=== PATIENT | male | born 1990 | race Caucasian/White ===

== ENCOUNTER 2022-08-17 09:53 | Emergency (ER) | payer MEDICAID, SELFPAY ==
[2022-08-17] VITALS (8 sets, daily range): BP systolic 0–163; BP diastolic 0–103; PULSE 0–95; RESP 0–20; TEMP -17.7–36.8; O2SAT 0–98; BMI 31.5
--- NOTE | 2022-08-17 09:53 | ECG_ITS ---
APPROVED REPORT Exam: Resting ECG HR:89 bpm ECG Measurements Heart Rate 89 AXES NH 156 P 56 QRSd 139 QRS 27 QT 363 T 33 QTc 409 Conclusion SINUS RHYTHM WITH SINUS ARRHYTHMIA RIGHT BUNDLE BRANCH BLOCK [120+ ms QRS DURATION, UPRIGHT V1, 40+ ms S IN I/aVL/V4/V5/V6] ABNORMAL ECG UNCONFIRMED REPORT Electronically signed by : Ross Morin MD 08/17/2022 17:02:52
--- NOTE | 2022-08-17 10:03 | XR_ITS ---
FINAL REPORT CLINICAL HISTORY: epigastric pain FINDINGS: Two views of the chest were obtained. The heart size and pulmonary vascularity are within normal limits. The mediastinum is normal. No acute pulmonary abnormality is identified. There is no pneumothorax. The bony thorax is intact. IMPRESSION: No active cardiopulmonary disease. Reviewed, Interpreted and Dictated by Maurizio Pelletier III, MD Transcribed by Leisa Moctezuma Authenticated and . [facility]
[2022-08-17 10:13] LABS: Basophils # 0.1 K/mm3 (0-0.2); Basophils % 1.1 % (0.1-2.0); Eosinophils # 0.4 K/mm3 (0.0-0.4); Eosinophils % 3.4 % (0.1-12.0); Hematocrit 52.2 % (42.0-52.0); Lymphocytes # 1.5 K/mm3 (0.7-4.5); Lymphocytes % 14.6 % (10-50); Mean Corpuscular HGB Conc 32.6 g/dL (31.8-35.4); Mean Corpuscular Hemoglobin 30.8 pg (27.0-31.2); Mean Corpuscular Volume 94.3 fl (80-94); Mean Platelet Volume 8.3 fl (7.4-10.4); Monocytes # 0.4 K/mm3 (0.1-1.0); Monocytes % 4.3 % (1.7-9.3); Neutrophils # 7.8 K/mm3 (1.8-7.8); Neutrophils % 76.5 % (37.0-80.0); Platelet Count 201 K/mm3 (142-424); Red Blood Count 5.54 M/mm3 (4.60-6.20); Red Cell Distribution Width 12.8 % (11.5-17.5); White Blood Count 10.2 K/mm3 (4.8-10.8)
[2022-08-17 10:14] LABS: Chloride 102 mmol/L (98-107); Potassium 3.8 mmoL/L (3.5-5.1); Sodium 143 mmol/L (136-145)
[2022-08-17 10:16] LABS: Alanine Aminotransferase 597 U/L (12-78); Aspartate Amino Transferase 412 U/L (17-59); Blood Urea Nitrogen 12 mg/dl (9-20); Creatinine Clearance Estimated 189 mL/min (50-200); Estimated Glomerular Filt Rate 86 ml/min (>60); GFR (African American) 104 ML/MIN (>60)
[2022-08-17 10:17] LABS: Albumin Level 4.8 g/dl (3.5-5.0); Albumin/Globulin Ratio 1.5 (1.1-1.8); Alkaline Phosphatase 74 U/L (38-126); Anion Gap 11.8 mEq/L (5-15); Bilirubin,Total 3.7 mg/dl (0.2-1.3); Calcium 9.2 mg/dl (8.4-10.2); Carbon Dioxide 33 mmol/L (22.0-30.0); Globulin 3.1 g/dL (1.3-3.2); Glucose 145 mg/dl (74-100); Total Protein,Serum 7.9 g/dl (6.3-8.2)
--- NOTE | 2022-08-17 10:19 | HMH.EDGENADL ---
Discharge Plan Disposition Patient Disposition: Left Against Medical Advice Prescriptions Prescriptions: No Action No Known Home Medications Referrals Follow up/Referrals: Provider,Referral, MD [Primary Care Provider] - See instructions Clinical Impressions Clinical Impression: Left against medical advice, Acute gallstone pancreatitis, Choledocholithiasis Discharge ED Provider: Marco Antonio Sandoval General Adult HPI General Chief complaint: PAIN Stated complaint: epigastric pain Time Seen by Provider: 08/17/22 10:03 Mode of Arrival: Ambulatory Source of Information: Patient Limitations: No Limitations Description of Symptoms (Recalled from ER Triage Doc. by RN): pt to ed c/o epigastric pain that radiates to the umbilical region and chest. pt describes this pain as a burning pain. pt states this pain started yesterday afternoon after eating mcdonals. pt denies pmhx. History of Present Illness HPI narrative: This is an otherwise healthy 32-year-old male presenting with abdominal pain. Patient states that abdominal pain started approximately 24 hours to arrival after eating 2 cheeseburgers. Radiates downward toward his pelvis, associated with nausea without vomiting. Patient denies fevers, chills, constipation, but has had diarrhea that is nonbloody. Lying on his side in the position makes it better, nothing in particular makes it worse other than eating. No other relevant history. Related Data Home Medications Medication Instructions Recorded Confirmed No Known Home Medications 08/17/22 08/17/22 Allergies Allergy/AdvReac Type Severity Reaction Status Date / Time No Known Allergies Allergy Verified 08/17/22 10:02 [facility] Disclaimer: The information contained in this section may have been updated after the patient was seen, as this information can be updated by other users. Social History Smoking Status: Current every day smoker alcohol intake: current current occupational status: employed Travel in the last 8 weeks: None ROS Obtained: Yes All systems reviewed & no additional complaints except as documented Physical Exam General General appearance: alert and in no apparent distress Head Head exam: atraumatic, normocephalic and normal inspection Eye Eye exam: Present normal appearance, PERRL and EOMI ENT ENT exam: Present normal exam, normal oropharynx, mucous membranes moist, TM's normal bilaterally and normal external ear exam Neck Neck exam: Present normal inspection, full ROM and trachea midline; Absent meningismus or lymphadenopathy Chest Chest inspection: Present normal inspection and symmetric chest wall rise; Absent tenderness Respiratory Respiratory exam: Present normal lung sounds bilaterally; Absent respiratory distress Cardiovascular Cardiovascular exam: Present regular rate and normal rhythm; Absent JVD Abdominal Exam Abdominal exam: Present soft, tenderness, normal bowel sounds and Crespo's sign; Absent distention, guarding, rebound, rigidity, Rovsing's sign or tenderness at McBurney's Point Abdominal tenderness: Present RUQ and epigastrium Extremities Exam Extremities exam: Present normal inspection, full ROM and normal capillary refill; Absent calf tenderness Back Exam Back exam: Present normal inspection; Absent tenderness Neurological Exam Neurological exam: Present alert and oriented X3 Psychiatric Psychiatric exam: Present normal affect and normal mood Skin Skin exam: Present warm, dry, intact and normal color Lymphatic Lymphatic Findings: no adenopathy Medical Decision Making Medical Records Medical records reviewed: Yes I reviewed the patient's medical records. Adrian Inquiry Pt receiving controlled substance: No Adrian was queried for this patient: No Vital Signs: 08/17/22 09:57 08/17/22 10:31 08/17/22 11:00 Temperature 98.2 F Temperature Source Oral Pulse Rate 89 83 Pulse Rate [Left Radial] 95 H Respiratory Rate 18 20 20 Bl
[2022-08-17 10:31] LABS: Troponin I < 0.01 ng/ml (0.00-0.034)
[2022-08-17 10:48] LABS: Lipase 10482 U/L (23-300)
--- NOTE | 2022-08-17 11:15 | US_ITS ---
FINAL REPORT CLINICAL HISTORY: concern for gallstone panc vs choledocholithiasis FINDINGS: Sonographic images of the right upper quadrant were obtained. The pancreas is partially obscured. The liver has increased echogenicity consistent with mild fatty infiltration. There are multiple gallstones in the gallbladder. The gallbladder wall measures at the upper limits of normal at 3 mm. There is no evidence of biliary ductal dilatation.The common duct measures 4mm. Limited images of the right kidney are unremarkable. IMPRESSION: Mild fatty liver. Cholelithiasis. Reviewed, Interpreted and Dictated by Maurizio Pelletier III, MD Transcribed by Germaine Madrid Authenticated and [facility]
--- NOTE | 2022-08-17 12:00 | CT_ITS ---
FINAL REPORT CLINICAL HISTORY: concern for choledocho FINDINGS: CT OF THE ABDOMEN AND PELVIS WITH CONTRAST Axial CT images of the abdomen and pelvis were obtained after the administration of IV contrast. Coronal reformatted images were also obtained and reviewed.This study was performed with techniques to keep radiation doses as low as reasonably achievable (ALARA). Individualized dose reduction techniques using automated exposure control or adjustment of mA and/or kV according to the patient's size were employed. Abdomen: The lung bases are clear. The heart is normal in size. There is mild fatty infiltration of the liver. There is mild nonspecific gallbladder wall thickening. The spleen is unremarkable. No adrenal mass is present. There is significant inflammatory fat stranding surrounding the pancreas consistent with acute pancreatitis. There is no evidence of pancreatic necrosis, pseudocyst or abscess. There are multiple mildly enlarged portal and portocaval lymph nodes, favor reactive. There is no evidence of biliary ductal dilatation. The kidneys are normal, without evidence of mass or hydronephrosis. The aorta is normal in caliber. There is no free fluid or adenopathy. No mass or abnormal fluid collection is seen. There is a small umbilical hernia containing fat. Pelvis: The appendix not visualized. The urinary bladder is unremarkable. There is no evidence of mass or adenopathy. There is no evidence of bowel obstruction. There are bilateral L5 pars defects. IMPRESSION: Findings consistent with acute pancreatitis with no evidence of pancreatic necrosis, pseudocyst or abscess. Mild fatty liver. Reviewed, Interpreted and Dictated by Maurizio Pelletier III, MD Transcribed by Germaine Madrid Authenticated and [facility]
[2022-08-17 12:15] LABS: Lactic Acid 1.5 mmol/L (0.7-2.1)
--- NOTE | 2022-08-17 13:52 | PC.NURSE ---
Calling [facility] for consult and possible transfrer of patient.
--- NOTE | 2022-08-17 14:21 | PC.NURSE ---
Called [facility] transfer [place], they are going to check their facilities and call back with info of openings.
[2022-08-17 14:37] LABS: Coronavirus 19, PCR Not Detected (NotDetected); Influenza A, PCR Not Detected (NotDetected); Influenza B, PCR Not Detected (NotDetected)
--- NOTE | 2022-08-17 15:17 | PC.NURSE ---
spoke with [facility] who states they accept pt and will kathrin back with a bed
--- NOTE | 2022-08-17 18:19 | PC.NURSE ---
Called [facility] for update on room on patient, said room needs to be evacuated and cleaned and should be later tonite.
--- NOTE | 2022-08-17 19:52 | PC.NURSE ---
Addendum entered by Lynette Bridges RN 08/18/22 10:52: late entry* Md to the bedside to speak with pt about risks associated with leaving. pt understands and is still choosing to leave [facility]. Original Note: PT REQUESTING TO SIGN OUT , PT DOES NOT WANT TO STAY AND WAIT ANY LONGER HE UNDERSTANDS TO RISK AND JUST WANTS TO LEAVE . AMA PAPER SIGNED
[2022-08-20 22:13] LABS: Hep A Ab, IgM NEGATIVE; Hepatitis B Core Antibody IgM NEGATIVE; Hepatitis B Surface Antigen NEGATIVE; Hepatitis C Antibody 0.1
== END 2022-08-17 19:52 | disposition left against medical advice (07) ==
PROVIDERS: Emergency Provider Emergency Medicine
DX: K85.90 Acute pancreatitis without necrosis or infection, unspecified (principal); R11.0 Nausea; R19.7 Diarrhea, unspecified; I45.10 Unspecified right bundle-branch block; Z20.822 Contact with and (suspected) exposure to COVID-19; F17.200 Nicotine dependence, unspecified, uncomplicated
CPT/HCPCS: 71046; 74177; 76705; 80053; 80074; 83605; 83690; 84484; 85025; 87040; 87075; 87077; 87186; 93005; 96361; 96374; 96375; 99285; C9803; J2405; J2543; Q9967; U0003; U0005